=== PATIENT | female | born 1950 | race Two or more races ===

== ENCOUNTER 2024-11-21 14:10 | Emergency (ER) | payer MEDICARE, OTHER ==
[~2024-11-21] VITALS: Ht 139.7 cm; Wt 54.4 kg
[2024-11-21 16:23] VITALS: BP 125/80; TEMP 98.5; O2SAT 99
== END 2024-11-21 16:24 | disposition home or self-care (01) ==
LOC: ER 14:10
DX: M25.571 Pain in right ankle and joints of right foot (principal); R22.41 Localized swelling, mass and lump, right lower limb; M79.661 Pain in right lower leg; E11.9 Type 2 diabetes mellitus without complications; E78.5 Hyperlipidemia, unspecified; I10 Essential (primary) hypertension; M81.0 Age-related osteoporosis without current pathological fracture; Z95.1 Presence of aortocoronary bypass graft
CPT/HCPCS: 73610-TC; 93971-TC

== ENCOUNTER 2024-11-22 16:49 | Emergency (ER) | payer MEDICARE, MEDICAID ==
[~2024-11-22] VITALS: Ht 149.9 cm; Wt 56.7 kg
[2024-11-22 17:15] VITALS: BP 127/82; TEMP 98
[2024-11-22 17:50] VITALS: O2SAT 98
== END 2024-11-22 17:51 | disposition home or self-care (01) ==
LOC: ER 16:49
DX: M76.61 Achilles tendinitis, right leg (principal); E11.9 Type 2 diabetes mellitus without complications; E78.5 Hyperlipidemia, unspecified; I10 Essential (primary) hypertension; M81.0 Age-related osteoporosis without current pathological fracture; Z95.1 Presence of aortocoronary bypass graft